=== PATIENT | female | born 1955 | race Two or more races ===

== ENCOUNTER 2021-01-16 14:29 | Emergency (ER) | payer OTHER ==
[~2021-01-16] VITALS: Ht 157.5 cm; Wt 63.5 kg
[2021-01-16] MEDS ORDERED: ACETAMINOPHEN 500 MG (16:35)
[2021-01-16] MEDS ORDERED: ZITHROMAX200 MG PO (20:10)
[2021-01-16] MEDS ORDERED: BACTRIM DS TAB1 EACH PO (20:10)
== END 2021-01-16 20:17 | disposition home or self-care (01) ==
LOC: ER 14:29
DX: R10.11 Right upper quadrant pain (principal); R10.13 Epigastric pain; B96.0 Mycoplasma pneumoniae [M. pneumoniae] as the cause of diseases classified elsewhere; N39.0 Urinary tract infection, site not specified; Z03.818 Encounter for observation for suspected exposure to other biological agents ruled out